=== PATIENT | male | born 1945 | race Caucasian/White ===

== ENCOUNTER 2017-03-13 09:35 | Inpatient (IN) | payer OTHER ==
[2017-03-13] MEDS: SALINE 3% 15 ML NEB TX NEB ONE ×2 (10:43→11:00)
[2017-03-13] MEDS: DUONEB 0.5 MG/3 MG NEB SCH ×3 (10:43→21:17)
[2017-03-13] MEDS ORDERED: DUONEB 0.5 MG/3 MG ONE (10:46)
[2017-03-13] MEDS ORDERED: SALINE 3% 15 ML NEB TX ONE (11:07)
[2017-03-13] MEDS ORDERED: SOLU-Medrol 125 MG VIAL IVP ONE (11:45)
[2017-03-13 12:40] LABS: BASOPHILS % (AUTO) 0.2 % (0.2-1.0); HEMATOCRIT 41.1 % (42.0-54.0); HEMOGLOBIN 13.8 g/dL (13.5-18.0); LYMPHOCYTES # (AUTO) 1.2 X10^3/uL (1.3-2.9); LYMPHOCYTES % (AUTO) 5.8 % (21.0-51.0); MEAN CORPUSCULAR HEMOGLOBIN 28.2 pg (27.0-34.0); MEAN CORPUSCULAR HGB CONC 33.6 g/dL (33.0-35.0); MEAN CORPUSCULAR VOLUME 83.8 fL (80.0-100.0); MEAN PLATELET VOLUME 8.4 fL (7.4-11.0); MONOCYTES # (AUTO) 1.6 x10^3/uL (0.3-0.8); MONOCYTES % (AUTO) 7.7 % (0.0-13.0); NEUTROPHILS # (AUTO) 17.9 x10^3/uL (2.2-4.8); NEUTROPHILS % (AUTO) 86.3 % (42.0-75.0); PLATELET COUNT 252 X10^3/uL (150.0-450.0); RED BLOOD COUNT 4.91 X10^6/uL (4.7-6.0); RED CELL DISTRIBUTION WIDTH 13.7 % (11.6-16.5); WHITE BLOOD COUNT 20.8 X10^3/uL (3.6-10.0)
[2017-03-13 12:44] LABS: BLOOD UREA NITROGEN 18 mg/dL (7-18); CARBON DIOXIDE 25.7 mmol/L (21-32); CHLORIDE 108 mmol/L (98-107); COR NA(FOR HYPERGLY) 143 mmol/L (136-145); CREATININE 1.18 mg/dL (0.70-1.30); SODIUM 142 mmol/L (136-145); eGFR BLACK RACES > 60 (>60); eGFR NON BLACK RACES > 60 (>60)
[2017-03-13] MEDS: ZITHROMAX INJ 500 MG VIAL 500 MG in NS 250 ML IV 250 ML IV SCH (13:03)
[2017-03-13] MEDS: ROCEPHIN VIAL 1 GM 1 GM in NS 50 ML IV 50 ML IV SCH (13:03)
[2017-03-13] MEDS ORDERED: NS 250 ML IV 250 ML IV ONE (13:07)
[2017-03-13] MEDS ORDERED: NS 500 ML IV 500 ML IV ONE (13:07)
[2017-03-13 13:09] LABS: ABG ALLEN TEST POS; ABG BASE EXCESS -3.1 mmol/L (-2.0-2.0); ABG HCO3 21.1 mmol/L (22-26)
--- NOTE | 2017-03-13 13:20 | RAD ---
Examination: Chest, PA and lateral views History: SOB Comparison reference: None Findings: Normal heart size, lungs clear of active disease. There is a densely calcified 1.0 cm granu alejandrina in the right middle lobe. There is no acute infiltrate, hilar enlargement or pleural effusion. Impression: No active chest disease. Calcified granuloma right lung as described. The Reported By:
[2017-03-13 13:45] VITALS: BMI 29.6
--- NOTE | 2017-03-13 16:52 | DR.H&P ---
H&P - History & Physical for Day of: H&P Date: 03/13/17 - Chief Complaint Chief Complaint: SOB - Allergies Allergies/Adverse Reactions: Allergies Allergy/AdvReac Type Severity Reaction Status Date / Time citalopram [From Celexa] Allergy Verified 03/13/17 11:31 - History of Present Illness History of Present Illness: The patient is a 72-year-old white male who presents with increasing shortness of breath. Patient was seen in the clinic setting on 03/12/17 secondary to acute COPD exacerbation. Patient was given Rocephin and Decadron IM. Patient prescribed Levaquin and prednisone. Patient is using nebulizer treatments 4 times a day and straight increased frequency to every 4 hours. The patient was given by mouth prednisone as well. Patient has been using his inhalers and oxygen at home. Does continued to have increasing dyspnea with nonproductive cough. Denies fever. Patient has failed outpatient treatment. - Past Medical History Past Medical History: Anxiety (and is to), Arthritis, COPD (O2 dependence), Dyslipidemia, GERD, Hypertension Additional Medical History: peripheral neuroopathy, bph - Past Surgical History Surgical History: Appendectomy, Cholecystectomy - Social History Does patient currently use any type of tobacco product: No Have you used tobacco products in the last 12 months: No Type of Tobacco Use: None How many years tobacco product used: 50 Does any household member use tobacco: No Alcohol Use: None Drug Use: None - Medications Home Medications: Amlodipine Besylate [Norvasc] 1 tab PO DAILY 03/13/17 [History Confirmed ] Budesonide-Formoterol [SYMBICORT INH 160-4.5 mcg (10.2 g) *] 1 inh INH DAILY [History Confirmed 03/13/17] Clonazepam 1 tab PO TID PRN 03/13/17 [History Confirmed 03/13/17] Finasteride [Proscar] 1 tab PO DAILY 03/13/17 [History Confirmed 03/13/17] Gabapentin 1 cap PO HS 03/13/17 [History Confirmed 03/13/17] Guaifenesin 1 cap PO Q4H PRN 03/13/17 [History Confirmed 03/13/17] Levofloxacin [LEVAQUIN TAB 500 MG *] 1 tab PO Q24H 03/13/17 [History Confirmed 03/13/17] Lisinopril [ZESTRIL *] 1 tab PO BID 03/13/17 [History Confirmed 03/13/17] Metoprolol Succinate Ext Rel [TOPROL XL 100 MG *] 1 tab PO HS 03/13/17 [History Confirmed 03/13/17] Misc Home Med [Patient's Home Medication] 1 tab PO DAILY 03/13/17 [History Confirmed 03/13/17] Montelukast Sodium 1 tab PO HS 03/13/17 [History Confirmed 03/13/17] Promethazine HCl/Codeine [Prometh-Codein 6.25-10 mg/5 ml] 1 teaspoon PO Q6H PRN 03/13/17 [History Confirmed 03/13/17] Roflumilast [Daliresp] 1 tab PO DAILY 03/13/17 [History Confirmed 03/13/17] Simvastatin 1 tab PO HS 03/13/17 [History Confirmed 03/13/17] Tamsulosin HCl [FLOMAX (GENERIC) 0.4 MG *] 1 cap PO HS 03/13/17 [History Confirmed 03/13/17] Tramadol HCl 1 tab PO Q6H PRN 03/13/17 [History Confirmed 03/13/17] - Review of Systems Constitutional: Weakness, Malaise Eyes: No Symptoms Reported ENT: No Symptoms Reported Respiratory: Cough, Shortness of Breath, SOB with Excertion, Wheezing Cardiovascular: No Symptoms Reported Gastrointestinal: No Symptoms Reported Genitourinary: No Symptoms Reported Musculoskeletal: No Symptoms Reported Skin: No Symptoms Reported Neurological: No Symptoms Reported - Physical Exam Vital Signs: Temperature 97.7 F Respiratory Rate 24 Blood Pressure [Right Arm] 126/62 O2 Sat by Pulse Oximetry 96 Oriented: Normal Eyes: Normal Ear: Normal Nose: Normal Throat: Normal Respiratory: Diminished Throughout, Wheezes Throughout Cardiovascular: Normal : Normal Auscultation: Bowel Sounds: Normal Palpation: Normal Tenderness: Normal Skin: Normal Musculoskeletal: Normal Psychiatric: Normal Mood Description: Anxious Affect: Normal Speech Pattern: Clear - Assessment/Plan (1) Acute bronchitis with COPD Status: Acute Plan: cxr, cbc, bmp, abg, solumedrol 125mg iv Q 8hrs, rocephin, zithromax (2) Chronic respiratory failure Narrative Support Text: O2 sat 92% Status: Acute Plan: o2 @ 2l/m nc, abg
[2017-03-13] MEDS ORDERED: PHENERGAN W/CODEINE 6.25MG/10MG PO PRN (16:53)
[2017-03-13 17:11] LABS: BILIRUBIN,URINE NEGATIVE (NEGATIVE); BLOOD/HEMOGLOBIN,URINE NEGATIVE (NEGATIVE); GLUCOSE, URINE NEGATIVE (NEGATIVE); KETONES,URINE NEGATIVE (NEGATIVE); LEUKOCYTE ESTERASE ,URINE NEGATIVE (NEGATIVE); NITRITES,URINE POSITIVE (NEGATIVE); PROTEIN,URINE 1+ (NEGATIVE); UROBILINOGEN,URINE NORMAL (NORMAL)
[2017-03-13 18:09] LABS: APPEARANCE,URINE CLEAR (CLEAR); COLOR,URINE YELLOW (YELLOW)
[2017-03-13 18:15] LABS: AMORPHOUS SEDIMENT,UR TRACE /HPF (NEGATIVE); BACTERIA,URINE NEGATIVE /HPF (NEGATIVE); RBC,URINE NONE SEEN /HPF (NEGATIVE); SQUAMOUS EPITHELIAL CELL,UR RARE /HPF (NEGATIVE)
[2017-03-13] MEDS: LEVAQUIN TAB 500 MG PO SCH (19:52)
[2017-03-13] MEDS ORDERED: TOPROL XL PO ONE (20:48)
[2017-03-13] MEDS ORDERED: ZESTRIL TAB 20 MG ONE (20:48)
[2017-03-13] MEDS: PULMICORT NEB TX 0.5 MG NEB SCH (21:17)
[2017-03-13] MEDS: FLOMAX PO SCH (21:50)
[2017-03-13] MEDS: NEURONTIN CAP 400 MG PO SCH (21:50)
[2017-03-13] MEDS: KLONOPIN TAB 1 MG PO PRN (21:51)
[2017-03-13] MEDS: ZOCOR TAB 10 MG PO SCH (21:51)
[2017-03-13] MEDS: ZESTRIL TAB 20 MG PO SCH (21:51)
[2017-03-13] MEDS: SINGULAIR TAB 10 MG PO SCH (21:51)
[2017-03-13] MEDS: TOPROL XL PO SCH (21:51)
[2017-03-14] MEDS: DUONEB 0.5 MG/3 MG NEB SCH ×6 (01:16→21:17)
[2017-03-14 06:09] LABS: BASOPHILS % (AUTO) 0.1 % (0.2-1.0); HEMATOCRIT 36.6 % (42.0-54.0); HEMOGLOBIN 12.4 g/dL (13.5-18.0); LYMPHOCYTES # (AUTO) 0.9 X10^3/uL (1.3-2.9); LYMPHOCYTES % (AUTO) 5.9 % (21.0-51.0); MEAN CORPUSCULAR HEMOGLOBIN 28.2 pg (27.0-34.0); MEAN CORPUSCULAR VOLUME 83.1 fL (80.0-100.0); MEAN PLATELET VOLUME 8.6 fL (7.4-11.0); MONOCYTES # (AUTO) 0.6 x10^3/uL (0.3-0.8); MONOCYTES % (AUTO) 3.7 % (0.0-13.0); NEUTROPHILS # (AUTO) 13.3 x10^3/uL (2.2-4.8); NEUTROPHILS % (AUTO) 90.3 % (42.0-75.0); PLATELET COUNT 214 X10^3/uL (150.0-450.0); RED BLOOD COUNT 4.41 X10^6/uL (4.7-6.0); RED CELL DISTRIBUTION WIDTH 13.7 % (11.6-16.5); WHITE BLOOD COUNT 14.7 X10^3/uL (3.6-10.0)
[2017-03-14 06:11] LABS: ALANINE AMINOTRANSFERASE 30 Units/L (12-78); ALBUMIN 3.2 g/dL (3.4-5.0); ALKALINE PHOSPHATASE 87 Units/L (46-116); ASPARTATE AMINO TRANSFERASE 20 Units/L (15-37); BLOOD UREA NITROGEN 18 mg/dL (7-18); CALCIUM 8.3 mg/dL (8.5-10.1); CARBON DIOXIDE 21.7 mmol/L (21-32); CHLORIDE 109 mmol/L (98-107); COR CA(FOR HYPOALB) 8.9 mg/dL (8.5-10.1); COR NA(FOR HYPERGLY) 142 mmol/L (136-145); CREATININE 1.04 mg/dL (0.70-1.30); SODIUM 141 mmol/L (136-145); TOTAL PROTEIN 6.1 g/dL (6.4-8.2); eGFR BLACK RACES > 60 (>60); eGFR NON BLACK RACES > 60 (>60)
[2017-03-14 07:00] LABS: PLATELET MORPHOLOGY COMMENT NORMAL (NORMAL)
[2017-03-14] MEDS ORDERED: ZESTRIL TAB 20 MG ONE ×2 (08:53→19:32)
[2017-03-14] MEDS ORDERED: LEVAQUIN PREMIX IV 500 MG 500 MG/100 ML BAG IV SCH (09:00)
[2017-03-14] MEDS: ULTRAM PO PRN ×2 (09:04→20:34)
[2017-03-14] MEDS: ZESTRIL TAB 20 MG PO SCH ×2 (09:05→20:35)
[2017-03-14] MEDS: KLONOPIN TAB 1 MG PO PRN ×2 (09:05→20:35)
[2017-03-14] MEDS: NORVASC TAB 10 MG PO SCH (09:05)
[2017-03-14] MEDS: PROSCAR PO SCH (09:06)
[2017-03-14] MEDS: ZITHROMAX INJ 500 MG VIAL 500 MG in NS 250 ML IV 250 ML IV SCH (09:06)
[2017-03-14] MEDS: DALIRESP PO SCH (09:06)
[2017-03-14] MEDS: ROCEPHIN VIAL 1 GM 1 GM in NS 50 ML IV 50 ML IV SCH (09:06)
[2017-03-14] MEDS: ROBITUSSIN (PLAIN) PO PRN ×2 (09:18→20:41)
[2017-03-14] MEDS: PULMICORT NEB TX 0.5 MG NEB SCH ×2 (09:32→21:17)
[2017-03-14] MEDS: LEVAQUIN TAB 500 MG PO SCH (17:20)
[2017-03-14] MEDS ORDERED: TOPROL XL PO ONE (19:31)
[2017-03-14] MEDS: NEURONTIN CAP 400 MG PO SCH (20:34)
[2017-03-14] MEDS: FLOMAX PO SCH (20:34)
[2017-03-14] MEDS: SINGULAIR TAB 10 MG PO SCH (20:34)
[2017-03-14] MEDS: ZOCOR TAB 10 MG PO SCH (20:35)
[2017-03-14] MEDS: TOPROL XL PO SCH (20:41)
[2017-03-15] MEDS: DUONEB 0.5 MG/3 MG NEB SCH ×6 (01:08→22:16)
[2017-03-15 06:05] LABS: BASOPHILS % (AUTO) 0.4 % (0.2-1.0); EOSINOPHILS # (AUTO) 0.2 x10^3/uL (0.0-0.2); EOSINOPHILS % (AUTO) 1.5 % (0.9-2.9); HEMATOCRIT 36.4 % (42.0-54.0); HEMOGLOBIN 12.4 g/dL (13.5-18.0); LYMPHOCYTES # (AUTO) 2.1 X10^3/uL (1.3-2.9); LYMPHOCYTES % (AUTO) 17.2 % (21.0-51.0); MEAN CORPUSCULAR HEMOGLOBIN 28.5 pg (27.0-34.0); MEAN CORPUSCULAR VOLUME 83.6 fL (80.0-100.0); MEAN PLATELET VOLUME 8.3 fL (7.4-11.0); MONOCYTES # (AUTO) 1.4 x10^3/uL (0.3-0.8); MONOCYTES % (AUTO) 11.7 % (0.0-13.0); NEUTROPHILS # (AUTO) 8.5 x10^3/uL (2.2-4.8); NEUTROPHILS % (AUTO) 69.2 % (42.0-75.0); PLATELET COUNT 201 X10^3/uL (150.0-450.0); RED BLOOD COUNT 4.36 X10^6/uL (4.7-6.0); RED CELL DISTRIBUTION WIDTH 13.9 % (11.6-16.5); WHITE BLOOD COUNT 12.2 X10^3/uL (3.6-10.0)
[2017-03-15 06:24] LABS: ALANINE AMINOTRANSFERASE 52 Units/L (12-78); ALKALINE PHOSPHATASE 84 Units/L (46-116); ASPARTATE AMINO TRANSFERASE 39 Units/L (15-37); BLOOD UREA NITROGEN 19 mg/dL (7-18); CALCIUM 8.1 mg/dL (8.5-10.1); CARBON DIOXIDE 24.8 mmol/L (21-32); CHLORIDE 109 mmol/L (98-107); COR CA(FOR HYPOALB) 8.9 mg/dL (8.5-10.1); CREATININE 0.95 mg/dL (0.70-1.30); SODIUM 143 mmol/L (136-145); TOTAL PROTEIN 5.7 g/dL (6.4-8.2); eGFR BLACK RACES > 60 (>60); eGFR NON BLACK RACES > 60 (>60)
--- NOTE | 2017-03-15 07:56 | RAD ---
Examination: Portable AP chest History: COPD Comparison reference 03/13/2017 Findings: Continued normal heart size with essentially clear lungs. Widened upper mediastinum is attr ibuted to combination of nonstandard projection and brachiocephalic vessel dilatation. Impression: No acute abnormality demonstrated. Reported By:
[2017-03-15] MEDS: PULMICORT NEB TX 0.5 MG NEB SCH ×2 (08:45→22:16)
[2017-03-15] MEDS ORDERED: ZESTRIL TAB 20 MG ONE ×2 (09:08→19:41)
[2017-03-15] MEDS: KLONOPIN TAB 1 MG PO PRN ×2 (09:28→20:48)
[2017-03-15] MEDS: ZESTRIL TAB 20 MG PO SCH ×2 (09:28→20:48)
[2017-03-15] MEDS: PROSCAR PO SCH (09:29)
[2017-03-15] MEDS: NORVASC TAB 10 MG PO SCH (09:29)
[2017-03-15] MEDS: ROBITUSSIN (PLAIN) PO PRN ×2 (09:29→20:47)
[2017-03-15] MEDS: ROCEPHIN VIAL 1 GM 1 GM in NS 100 ML IV + SPIKE MINIBAG* 100 ML IV SCH (09:29)
[2017-03-15] MEDS: DALIRESP PO SCH (09:29)
[2017-03-15] MEDS: ZITHROMAX INJ 500 MG VIAL 500 MG in NS 250 ML IV 250 ML IV SCH (09:30)
[2017-03-15] MEDS ORDERED: MUCOMYST 20% 200 MG/ML NEB SCH (13:45)
[2017-03-15] MEDS: LEVAQUIN TAB 500 MG PO SCH (17:59)
[2017-03-15] MEDS ORDERED: TOPROL XL PO ONE (19:41)
[2017-03-15] MEDS: NEURONTIN CAP 400 MG PO SCH (20:47)
[2017-03-15] MEDS: TOPROL XL PO SCH (20:47)
[2017-03-15] MEDS: ZOCOR TAB 10 MG PO SCH (20:47)
[2017-03-15] MEDS: ULTRAM PO PRN (20:48)
[2017-03-15] MEDS: SINGULAIR TAB 10 MG PO SCH (20:48)
[2017-03-15] MEDS: FLOMAX PO SCH (20:48)
[2017-03-15] MEDS: MUCOMYST 20% 200 MG/ML NEB SCH (22:16)
[2017-03-16] MEDS: DUONEB 0.5 MG/3 MG NEB SCH ×6 (02:17→22:00)
[2017-03-16 06:24] LABS: BASOPHILS % (AUTO) 0.5 % (0.2-1.0); EOSINOPHILS # (AUTO) 0.8 x10^3/uL (0.0-0.2); EOSINOPHILS % (AUTO) 9.3 % (0.9-2.9); HEMATOCRIT 37.2 % (42.0-54.0); HEMOGLOBIN 12.7 g/dL (13.5-18.0); LYMPHOCYTES # (AUTO) 1.7 X10^3/uL (1.3-2.9); LYMPHOCYTES % (AUTO) 18.8 % (21.0-51.0); MEAN CORPUSCULAR HEMOGLOBIN 28.6 pg (27.0-34.0); MEAN CORPUSCULAR HGB CONC 34.1 g/dL (33.0-35.0); MEAN CORPUSCULAR VOLUME 83.9 fL (80.0-100.0); MEAN PLATELET VOLUME 8.5 fL (7.4-11.0); MONOCYTES # (AUTO) 1.1 x10^3/uL (0.3-0.8); NEUTROPHILS # (AUTO) 5.4 x10^3/uL (2.2-4.8); NEUTROPHILS % (AUTO) 59.4 % (42.0-75.0); PLATELET COUNT 192 X10^3/uL (150.0-450.0); RED BLOOD COUNT 4.43 X10^6/uL (4.7-6.0); RED CELL DISTRIBUTION WIDTH 13.7 % (11.6-16.5); WHITE BLOOD COUNT 9.1 X10^3/uL (3.6-10.0)
[2017-03-16 06:50] LABS: ALANINE AMINOTRANSFERASE 60 Units/L (12-78); ALKALINE PHOSPHATASE 87 Units/L (46-116); ASPARTATE AMINO TRANSFERASE 39 Units/L (15-37); BLOOD UREA NITROGEN 18 mg/dL (7-18); CALCIUM 8.2 mg/dL (8.5-10.1); CARBON DIOXIDE 26.2 mmol/L (21-32); CHLORIDE 109 mmol/L (98-107); CREATININE 0.97 mg/dL (0.70-1.30); SODIUM 144 mmol/L (136-145); TOTAL PROTEIN 5.8 g/dL (6.4-8.2); eGFR BLACK RACES > 60 (>60); eGFR NON BLACK RACES > 60 (>60)
[2017-03-16] MEDS ORDERED: ZESTRIL TAB 20 MG ONE ×2 (08:21→20:16)
[2017-03-16] MEDS: ROCEPHIN VIAL 1 GM 1 GM in NS 100 ML IV + SPIKE MINIBAG* 100 ML IV SCH (09:12)
[2017-03-16] MEDS: KLONOPIN TAB 1 MG PO PRN ×2 (09:13→20:22)
[2017-03-16] MEDS: ROBITUSSIN (PLAIN) PO PRN ×3 (09:13→21:53)
[2017-03-16] MEDS: DALIRESP PO SCH (09:13)
[2017-03-16] MEDS: PROSCAR PO SCH (09:13)
[2017-03-16] MEDS: ZITHROMAX INJ 500 MG VIAL 500 MG in NS 250 ML IV 250 ML IV SCH (09:13)
[2017-03-16] MEDS: ZESTRIL TAB 20 MG PO SCH ×2 (09:13→20:24)
[2017-03-16] MEDS: NORVASC TAB 10 MG PO SCH (09:13)
[2017-03-16] MEDS: PULMICORT NEB TX 0.5 MG NEB SCH ×2 (09:17→22:00)
[2017-03-16] MEDS: MUCOMYST 20% 200 MG/ML NEB SCH ×2 (09:17→22:01)
[2017-03-16] MEDS ORDERED: NS 500 ML IV 500 ML IV ONE (10:39)
[2017-03-16] MEDS: LEVAQUIN TAB 500 MG PO SCH (17:01)
[2017-03-16] MEDS ORDERED: TOPROL XL PO ONE (20:16)
[2017-03-16] MEDS: SINGULAIR TAB 10 MG PO SCH (20:21)
[2017-03-16] MEDS: ZOCOR TAB 10 MG PO SCH (20:21)
[2017-03-16] MEDS: TOPROL XL PO SCH (20:22)
[2017-03-16] MEDS: FLOMAX PO SCH (20:23)
[2017-03-16] MEDS: ULTRAM PO PRN (20:23)
[2017-03-16] MEDS: NEURONTIN CAP 400 MG PO SCH (20:24)
[2017-03-17] MEDS: DUONEB 0.5 MG/3 MG NEB SCH ×4 (01:07→12:15)
[2017-03-17] MEDS ORDERED: ZESTRIL TAB 20 MG ONE (07:53)
[2017-03-17 08:08] LABS: BASOPHILS # (AUTO) 0.1 X10^3/uL (0.0-0.1); BASOPHILS % (AUTO) 0.5 % (0.2-1.0); EOSINOPHILS # (AUTO) 0.9 x10^3/uL (0.0-0.2); EOSINOPHILS % (AUTO) 7.7 % (0.9-2.9); HEMATOCRIT 41.4 % (42.0-54.0); HEMOGLOBIN 13.9 g/dL (13.5-18.0); LYMPHOCYTES # (AUTO) 1.5 X10^3/uL (1.3-2.9); LYMPHOCYTES % (AUTO) 12.9 % (21.0-51.0); MEAN CORPUSCULAR HEMOGLOBIN 28.1 pg (27.0-34.0); MEAN CORPUSCULAR HGB CONC 33.5 g/dL (33.0-35.0); MEAN CORPUSCULAR VOLUME 84.1 fL (80.0-100.0); MEAN PLATELET VOLUME 7.8 fL (7.4-11.0); MONOCYTES # (AUTO) 1.3 x10^3/uL (0.3-0.8); MONOCYTES % (AUTO) 10.7 % (0.0-13.0); NEUTROPHILS # (AUTO) 8.1 x10^3/uL (2.2-4.8); NEUTROPHILS % (AUTO) 68.2 % (42.0-75.0); PLATELET COUNT 237 X10^3/uL (150.0-450.0); RED BLOOD COUNT 4.93 X10^6/uL (4.7-6.0); RED CELL DISTRIBUTION WIDTH 13.9 % (11.6-16.5); WHITE BLOOD COUNT 11.8 X10^3/uL (3.6-10.0)
[2017-03-17] MEDS: DALIRESP PO SCH (08:19)
[2017-03-17] MEDS: ROBITUSSIN (PLAIN) PO PRN (08:19)
[2017-03-17] MEDS: PROSCAR PO SCH (08:19)
[2017-03-17] MEDS: ZESTRIL TAB 20 MG PO SCH (08:19)
[2017-03-17] MEDS: NORVASC TAB 10 MG PO SCH (08:19)
[2017-03-17 08:23] LABS: ALANINE AMINOTRANSFERASE 59 Units/L (12-78); ALBUMIN 3.4 g/dL (3.4-5.0); ALKALINE PHOSPHATASE 104 Units/L (46-116); ASPARTATE AMINO TRANSFERASE 34 Units/L (15-37); BLOOD UREA NITROGEN 14 mg/dL (7-18); CALCIUM 8.9 mg/dL (8.5-10.1); CARBON DIOXIDE 28.2 mmol/L (21-32); CHLORIDE 107 mmol/L (98-107); COR NA(FOR HYPERGLY) 142 mmol/L (136-145); CREATININE 1.03 mg/dL (0.70-1.30); SODIUM 142 mmol/L (136-145); TOTAL PROTEIN 6.5 g/dL (6.4-8.2); eGFR BLACK RACES > 60 (>60); eGFR NON BLACK RACES > 60 (>60)
[2017-03-17] MEDS: MUCOMYST 20% 200 MG/ML NEB SCH (09:30)
[2017-03-17] MEDS: PULMICORT NEB TX 0.5 MG NEB SCH (09:30)
[2017-03-17] MEDS: ROCEPHIN VIAL 1 GM 1 GM in NS 100 ML IV + SPIKE MINIBAG* 100 ML IV SCH (10:29)
[2017-03-17] MEDS: ZITHROMAX INJ 500 MG VIAL 500 MG in NS 250 ML IV 250 ML IV SCH (10:29)
[2017-03-17 12:54] VITALS: BP 108/59
== END 2017-03-17 13:45 | disposition home or self-care (01) | DRG 191 ==
LOC: MED/SURG 09:35
PROVIDERS: ADMIT Internal Medicine; ATTEND Internal Medicine
DX: J44.1 Chronic obstructive pulmonary disease with (acute) exacerbation (principal); J20.9 Acute bronchitis, unspecified; J44.0 Chronic obstructive pulmonary disease with (acute) lower respiratory infection; R06.02 Shortness of breath; Z99.81 Dependence on supplemental oxygen; E78.2 Mixed hyperlipidemia; K21.9 Gastro-esophageal reflux disease without esophagitis; I10 Essential (primary) hypertension; J96.10 Chronic respiratory failure, unspecified whether with hypoxia or hypercapnia
CPT/HCPCS: 36415; 36600; 71010; 71020; 80048; 80053; 81001; 82803; 85025; 87040; 87086; 93005; 93010; 94640; 94669; 94760; 99231; A4222; S0138; J0456; J0696; J2930; J7608; J7620; J7626

== ENCOUNTER 2024-04-08 13:49 | Observation (INO) ==
--- NOTE | 2024-04-08 15:30 | DR.H&P ---
H&P History & Physical for Day of: H&P Date: 04/08/24 Chief Complaint Chief Complaint: SOB History of Present Illness History of Present Illness: Patient is a 79 year old white male who presents today with shortness of breath. Patient states he is unable to walk short distances or take a shower without giving out of breath. Patient has a history of asthma, COPD, HTN, type 2 diabetes, HLD, and GERD. Patient denies any nausea, vomiting, SINGH, chest pain or dizziness. States he is just unable to get the air he needs to breath. Patient's states he has been out in the weather more trying to prepare for the snow this week. States for the past two days his breathing has got worse. Patient states he has a bad cough but is not coughing anything up. Patient states he did have a heart catherization a few weeks ago and everything was good. Will admit patient for further evaluation and treatment. Past Medical History Past Medical History: Anxiety (and is to), Arthritis, COPD (O2 dependence), Dyslipidemia, GERD and Hypertension Additional Medical History: peripheral neuroopathy, bph Past Surgical History Surgical History: Appendectomy and Cholecystectomy Medications Home Medications: Home Medications Medication Instructions Recorded Confirmed Type Gabapentin 1 cap PO HS 03/13/17 03/13/17 History Misc Home Med [Patient's Home 1 tab PO DAILY 03/13/17 03/13/17 History Medication] amlodipine 10 mg tablet (Norvasc) 1 tab PO DAILY 03/13/17 03/13/17 History budesonide-formoterol HFA 160 1 inh INH DAILY 03/13/17 03/13/17 History mcg-4.5 mcg/actuation aerosol inhaler (Symbicort) clonazepam 1 mg tablet 1 tab PO TID PRN Anxiety 03/13/17 03/13/17 History finasteride 5 mg tablet (Proscar) 1 tab PO DAILY 03/13/17 03/13/17 History guaifenesin 400 mg tablet 1 cap PO Q4H PRN Congestion 03/13/17 03/13/17 History levofloxacin 500 mg tablet 1 tab PO Q24H 03/13/17 03/13/17 History lisinopril 20 mg tablet 1 tab PO BID 03/13/17 03/13/17 History metoprolol succinate 100 mg 1 tab PO HS 03/13/17 03/13/17 History tablet,extended release 24 hr montelukast 10 mg tablet 1 tab PO HS 03/13/17 03/13/17 History promethazine 6.25 mg-codeine 10 1 teaspoon PO Q6H PRN 03/13/17 03/13/17 History mg/5 mL syrup roflumilast 500 mcg tablet 1 tab PO DAILY 03/13/17 03/13/17 History (Daliresp) simvastatin 10 mg tablet 1 tab PO HS 03/13/17 03/13/17 History tamsulosin 0.4 mg capsule 1 cap PO HS 03/13/17 03/13/17 History tramadol 50 mg tablet 1 tab PO Q6H PRN Pain 03/13/17 03/13/17 History Allergies Allergies Allergy/AdvReac Type Severity Reaction Status Date / Time citalopram [From Celexa] Allergy Verified 03/13/17 11:31 Review of Systems Constitutional: No Symptoms Reported Eyes: No Symptoms Reported ENT: No Symptoms Reported Respiratory: See HPI, Cough and Shortness of Breath Cardiovascular: No Symptoms Reported Gastrointestinal: No Symptoms Reported Genitourinary: No Symptoms Reported Musculoskeletal: Back Pain and Neck Pain Skin: No Symptoms Reported Neurological: No Symptoms Reported Oriented: Normal Eyes: Normal Ear: Normal Nose: Normal Throat: Normal Respiratory: RLL Diminished and LLL Diminished Cardiovascular: Normal : Normal Auscultation: Bowel Sounds: Normal Palpation: Normal Tenderness: Normal Skin: Normal Musculoskeletal: Back:Lumbar Psychiatric: Normal Mood Description: Calm Affect: Normal Speech Pattern: Clear Assessment/Plan (1) Acute bronchitis with COPD: Narrative Support Text: Chest X-ray steroids breathing treatment monitor Status: Acute (2) Chronic respiratory failure: Narrative Support Text: breathing treatments steroids oxygen nasal cannula monitor Status: Acute (3) Type 2 diabetes mellitus: Narrative Support Text: blood sugar check 1800 calorie diet monitor Status: Acute (4) HTN (hypertension): Narrative Support Text: monitor vitals Status: Acute (5) Asthma: Narrative Support Text: breathing treatments monitor Status: Acute Review H&P Reviewed: Yes Patient was examined?: Yes
[2024-04-08] MEDS: XOPENEX 1.25 MG/3 ML NEBULE NEB SCH ×2 (15:32→18:40)
[2024-04-08] MEDS: PULMICORT NEB TX 0.5 MG NEB SCH (15:32)
--- NOTE | 2024-04-08 15:55 | RAD ---
EXAM:Chest PA and lateral viewsHISTORY:COPDCOMPARISON:CT chest 04/09/2022FINDINGS:Heart size normal with no evidence for pneumonia, CHF, pneumothorax or pleural fluid. Mild symmetric pulmonary hyperinflation. Densely calcified 1 cm granuloma right lung.IMPRESSION:No acute chest abnormality identified.THIS IS AN ELECTRONICALLY VERIFIED FINAL REPORT04/08/2024 3:51 PM - Electronically signed by Jacob Cole MD
[2024-04-08] MEDS: SOLU-Medrol 125 MG VIAL IVP SCH (16:14)
[2024-04-08] MEDS: NS 1,000 ML IV 1,000 ML IV SCH (16:22)
[2024-04-08 16:28] LABS: ABG BASE EXCESS 0.5 mmol/L (-2.0-2.0); ABG HCO3 24.6 mmol/L (22-26)
--- NOTE | 2024-04-08 16:45 | EKG ---
Test Reason : COPD Blood Pressure : */* mmHG Vent. Rate : 60 BPM Atrial Rate : 60 BPM P-R Int : 252 ms QRS Dur : 100 ms QT Int : 400 ms P-R-T Axes : 57 51 59 degrees QTc Int : 400 ms Sinus rhythm with 1st degree AV block Otherwise normal ECG No previous ECGs available Confirmed by Jd Colin MD ([id number]) on 04/09/2024 6:43:28 AM Referred By: Confirmed By: Jd Colin MD
[2024-04-08] MEDS ORDERED: XOPENEX 1.25 MG/3 ML NEBULE NEB PRN (16:55)
[2024-04-08 16:56] LABS: BASOPHILS # (AUTO) 0.1 X10^3/uL (0.0-0.1); BASOPHILS % (AUTO) 0.9 % (0.2-1.0); HEMATOCRIT 41.6 % (42.0-54.0); HEMOGLOBIN 13.8 g/dL (13.5-18.0); LYMPHOCYTES # (AUTO) 1.3 X10^3/uL (1.3-2.9); MEAN CORPUSCULAR HEMOGLOBIN 26.2 pg (27.0-34.0); MEAN CORPUSCULAR HGB CONC 33.2 g/dL (33.0-35.0); MEAN CORPUSCULAR VOLUME 79.1 fL (80.0-100.0); MEAN PLATELET VOLUME 7.7 fL (7.4-11.0); MONOCYTES # (AUTO) 0.7 x10^3/uL (0.3-0.8); MONOCYTES % (AUTO) 10.7 % (0.0-13.0); NEUTROPHILS # (AUTO) 4.4 x10^3/uL (2.2-4.8); NEUTROPHILS % (AUTO) 68.4 % (42.0-75.0); PLATELET COUNT 256 X10^3/uL (150.0-450.0); RED BLOOD COUNT 5.25 X10^6/uL (4.7-6.0); RED CELL DISTRIBUTION WIDTH 14.9 % (11.6-16.5); WHITE BLOOD COUNT 6.5 X10^3/uL (3.6-10.0)
[2024-04-08] MEDS ORDERED: NS 1,000 ML IV 1,000 ML IV SCH (17:00)
[2024-04-08 17:09] LABS: ALANINE AMINOTRANSFERASE 27 Units/L (12-78); ALBUMIN 3.8 g/dL (3.4-5.0); ALKALINE PHOSPHATASE 102 Units/L (46-116); ASPARTATE AMINO TRANSFERASE 31 Units/L (15-37); BLOOD UREA NITROGEN 12 mg/dL (7-18); CALCIUM 9.1 mg/dL (8.5-10.1); CARBON DIOXIDE 27.3 mmol/L (21-32); CHLORIDE 102 mmol/L (98-107); COR NA(FOR HYPERGLY) 140 mmol/L (136-145); CREATININE 1.21 mg/dL (0.70-1.30); GLUCOSE 135 mg/dL (65-99); POTASSIUM 4.1 mmol/L (3.5-5.1); SODIUM 139 mmol/L (136-145); TOTAL PROTEIN 7.4 g/dL (6.4-8.2); eGFR NON BLACK RACES > 60 (>60)
[2024-04-08 18:27] VITALS: BMI 29.2
[2024-04-08 19:34] LABS: BILIRUBIN,URINE NEGATIVE (NEGATIVE); BLOOD/HEMOGLOBIN,URINE NEGATIVE (NEGATIVE); GLUCOSE, URINE 1+ (NEGATIVE); KETONES,URINE NEGATIVE (NEGATIVE); LEUKOCYTE ESTERASE ,URINE NEGATIVE (NEGATIVE); NITRITES,URINE NEGATIVE (NEGATIVE); PROTEIN,URINE 1+ (NEGATIVE); UROBILINOGEN,URINE NORMAL (NORMAL)
[2024-04-08 19:46] LABS: APPEARANCE,URINE CLEAR (CLEAR); BACTERIA,URINE TRACE /HPF (NEGATIVE); COLOR,URINE YELLOW (YELLOW); RBC,URINE 0-2 /HPF (0-3); SQUAMOUS EPITHELIAL CELL,UR FEW /HPF (NEGATIVE)
--- NOTE | 2024-04-08 20:08 | EKG ---
Test Reason : COPD Blood Pressure : */* mmHG Vent. Rate : 85 BPM Atrial Rate : 85 BPM P-R Int : 280 ms QRS Dur : 104 ms QT Int : 366 ms P-R-T Axes : 64 24 25 degrees QTc Int : 435 ms Sinus rhythm with 1st degree AV block Otherwise normal ECG When compared with ECG of 08-APR-2024 16:28, (Unconfirmed) Nonspecific T wave abnormality now evident in Inferior leads Confirmed by Jd Colin MD ([id number]) on 04/09/2024 6:43:21 AM Referred By: Confirmed By: Jd Colin MD
[2024-04-08] MEDS ORDERED: ZESTRIL TAB 20 MG ONE (20:46)
[2024-04-08] MEDS ORDERED: TOPROL XL PO ONE (20:47)
[2024-04-08] MEDS: TOPROL XL PO SCH (20:51)
[2024-04-08] MEDS: FLOMAX PO SCH (20:51)
[2024-04-08] MEDS: SINGULAIR TAB 10 MG PO SCH (20:52)
[2024-04-08] MEDS: TRICOR TAB 160 MG PO SCH (20:52)
[2024-04-08] MEDS: KLONOPIN TAB 1 MG PO PRN (20:52)
[2024-04-08] MEDS: ZOCOR TAB 10 MG PO SCH (20:52)
[2024-04-08] MEDS: NEURONTIN CAP 400 MG PO SCH (20:53)
[2024-04-08] MEDS: ZESTRIL TAB 20 MG PO SCH (20:55)
[2024-04-08] MEDS: NovoLIN R (or HumuLIN R) SUBCUT PRN (20:58)
[2024-04-09] MEDS: GLUCOPHAGE PO SCH (06:03)
[2024-04-09] MEDS: GLUCOPHAGE ONE (06:12)
[2024-04-09 07:23] LABS: BASOPHILS % (AUTO) 0.1 % (0.2-1.0); HEMATOCRIT 40.5 % (42.0-54.0); HEMOGLOBIN 13.5 g/dL (13.5-18.0); LYMPHOCYTES # (AUTO) 0.7 X10^3/uL (1.3-2.9); LYMPHOCYTES % (AUTO) 10.7 % (21.0-51.0); MEAN CORPUSCULAR HEMOGLOBIN 26.3 pg (27.0-34.0); MEAN CORPUSCULAR HGB CONC 33.3 g/dL (33.0-35.0); MEAN CORPUSCULAR VOLUME 78.9 fL (80.0-100.0); MEAN PLATELET VOLUME 7.7 fL (7.4-11.0); MONOCYTES # (AUTO) 0.1 x10^3/uL (0.3-0.8); NEUTROPHILS # (AUTO) 5.4 x10^3/uL (2.2-4.8); NEUTROPHILS % (AUTO) 88.2 % (42.0-75.0); PLATELET COUNT 226 X10^3/uL (150.0-450.0); RED BLOOD COUNT 5.14 X10^6/uL (4.7-6.0); RED CELL DISTRIBUTION WIDTH 15.1 % (11.6-16.5); WHITE BLOOD COUNT 6.1 X10^3/uL (3.6-10.0)
[2024-04-09 07:41] LABS: ALANINE AMINOTRANSFERASE 23 Units/L (12-78); ALBUMIN 3.3 g/dL (3.4-5.0); ALKALINE PHOSPHATASE 89 Units/L (46-116); ASPARTATE AMINO TRANSFERASE 21 Units/L (15-37); BLOOD UREA NITROGEN 12 mg/dL (7-18); CARBON DIOXIDE 24.9 mmol/L (21-32); CHLORIDE 102 mmol/L (98-107); COR CA(FOR HYPOALB) 9.6 mg/dL (8.5-10.1); COR NA(FOR HYPERGLY) 139 mmol/L (136-145); CREATININE 1.04 mg/dL (0.70-1.30); GLUCOSE 188 mg/dL (65-99); POTASSIUM 4.7 mmol/L (3.5-5.1); SODIUM 137 mmol/L (136-145); TOTAL PROTEIN 6.8 g/dL (6.4-8.2); eGFR NON BLACK RACES > 60 (>60)
[2024-04-09] MEDS ORDERED: ZESTRIL TAB 20 MG ONE (09:10)
[2024-04-09] MEDS: ULTRAM PO PRN (09:14)
[2024-04-09] MEDS: NORVASC TAB 10 MG PO SCH (09:15)
[2024-04-09] MEDS: DALIRESP PO SCH (09:16)
[2024-04-09] MEDS: FLONASE NASAL SPRAY ENOSTRIL SCH (09:18)
[2024-04-09] MEDS: ROCEPHIN VIAL 1 GRAM 1 G in NS 100 ML IV 100 ML IV SCH (10:57)
[2024-04-09] MEDS: NS 1,000 ML IV 1,000 ML IV SCH (17:31)
[2024-04-09] MEDS: TOPROL XL PO ONE (20:15)
[2024-04-09] MEDS: SNACK - Diabetic Appropriate PO SCH (20:21)
[2024-04-09] MEDS: ZESTRIL TAB 20 MG ONE (20:22)
[2024-04-10] MEDS: TYLENOL 325 MG TAB PO PRN (04:46)
[2024-04-10] MEDS ORDERED: GLUCOPHAGE ONE (04:50)
[2024-04-10 07:41] LABS: BASOPHILS % (AUTO) 0.1 % (0.2-1.0); HEMATOCRIT 39.5 % (42.0-54.0); HEMOGLOBIN 12.9 g/dL (13.5-18.0); LYMPHOCYTES # (AUTO) 0.9 X10^3/uL (1.3-2.9); LYMPHOCYTES % (AUTO) 7.2 % (21.0-51.0); MEAN CORPUSCULAR HEMOGLOBIN 25.8 pg (27.0-34.0); MEAN CORPUSCULAR HGB CONC 32.6 g/dL (33.0-35.0); MEAN PLATELET VOLUME 7.9 fL (7.4-11.0); MONOCYTES # (AUTO) 0.6 x10^3/uL (0.3-0.8); MONOCYTES % (AUTO) 5.3 % (0.0-13.0); NEUTROPHILS # (AUTO) 10.6 x10^3/uL (2.2-4.8); NEUTROPHILS % (AUTO) 87.4 % (42.0-75.0); PLATELET COUNT 245 X10^3/uL (150.0-450.0); RED CELL DISTRIBUTION WIDTH 15.1 % (11.6-16.5); WHITE BLOOD COUNT 12.1 X10^3/uL (3.6-10.0)
[2024-04-10 07:52] LABS: ALANINE AMINOTRANSFERASE 24 Units/L (12-78); ALBUMIN 3.6 g/dL (3.4-5.0); ALKALINE PHOSPHATASE 86 Units/L (46-116); ASPARTATE AMINO TRANSFERASE 19 Units/L (15-37); BLOOD UREA NITROGEN 19 mg/dL (7-18); CALCIUM 8.4 mg/dL (8.5-10.1); CARBON DIOXIDE 25.7 mmol/L (21-32); CHLORIDE 106 mmol/L (98-107); COR NA(FOR HYPERGLY) 144 mmol/L (136-145); CREATININE 1.22 mg/dL (0.70-1.30); GLUCOSE 170 mg/dL (65-99); POTASSIUM 4.2 mmol/L (3.5-5.1); SODIUM 142 mmol/L (136-145); TOTAL PROTEIN 6.9 g/dL (6.4-8.2); eGFR NON BLACK RACES > 60 (>60)
[2024-04-10] MEDS: ZESTRIL TAB 20 MG ONE ×2 (08:28→20:20)
[2024-04-10] MEDS ORDERED: SOLU-Medrol 125 MG VIAL IVP SCH (14:00)
[2024-04-10] MEDS: SOLU-Medrol 40 MG VIAL IVP SCH (14:10)
[2024-04-10] MEDS ORDERED: TOPROL XL PO ONE (20:12)
[2024-04-11] MEDS ORDERED: GLUCOPHAGE ONE (04:22)
--- NOTE | 2024-04-11 05:59 | RAD ---
EXAM: CHEST, PA/LAT ADULT HISTORY: COPD; COMPARISON: 04/08/2024 FINDINGS: The cardiomediastinal silhouette is stable. Chronic appearing interstitial changes in the lungs. No acute airspace disease. No pneumothorax or ef fusion. No acute osseous abnormality. IMPRESSION: No acute cardiopulmonary disease. THIS IS AN ELECTRONICALLY VERIFIED FINAL REPORT 04/11/2024 5:56 AM - Electronically signed by Wilfred Couch MD
[2024-04-11 06:53] LABS: BASOPHILS % (AUTO) 0.3 % (0.2-1.0); EOSINOPHILS % (AUTO) 0.1 % (0.9-2.9); HEMATOCRIT 37.6 % (42.0-54.0); HEMOGLOBIN 12.6 g/dL (13.5-18.0); LYMPHOCYTES # (AUTO) 0.8 X10^3/uL (1.3-2.9); LYMPHOCYTES % (AUTO) 8.7 % (21.0-51.0); MEAN CORPUSCULAR HEMOGLOBIN 26.3 pg (27.0-34.0); MEAN CORPUSCULAR HGB CONC 33.5 g/dL (33.0-35.0); MEAN CORPUSCULAR VOLUME 78.5 fL (80.0-100.0); MEAN PLATELET VOLUME 8.2 fL (7.4-11.0); MONOCYTES # (AUTO) 0.5 x10^3/uL (0.3-0.8); MONOCYTES % (AUTO) 5.7 % (0.0-13.0); NEUTROPHILS # (AUTO) 7.7 x10^3/uL (2.2-4.8); NEUTROPHILS % (AUTO) 85.2 % (42.0-75.0); PLATELET COUNT 233 X10^3/uL (150.0-450.0); RED BLOOD COUNT 4.79 X10^6/uL (4.7-6.0); RED CELL DISTRIBUTION WIDTH 15.2 % (11.6-16.5)
[2024-04-11] MEDS ORDERED: ZESTRIL TAB 20 MG ONE (07:20)
[2024-04-11 07:21] LABS: ALANINE AMINOTRANSFERASE 24 Units/L (12-78); ALBUMIN 3.4 g/dL (3.4-5.0); ALKALINE PHOSPHATASE 77 Units/L (46-116); ASPARTATE AMINO TRANSFERASE 24 Units/L (15-37); BLOOD UREA NITROGEN 20 mg/dL (7-18); CALCIUM 8.7 mg/dL (8.5-10.1); CARBON DIOXIDE 26.6 mmol/L (21-32); CHLORIDE 104 mmol/L (98-107); COR NA(FOR HYPERGLY) 141 mmol/L (136-145); GLUCOSE 183 mg/dL (65-99); POTASSIUM 4.2 mmol/L (3.5-5.1); SODIUM 139 mmol/L (136-145); TOTAL PROTEIN 6.5 g/dL (6.4-8.2); eGFR NON BLACK RACES > 60 (>60)
[2024-04-11 08:43] VITALS: BP 154/71; RESP 22; TEMP 97.6
[2024-04-11 09:19] VITALS: PULSE 73; O2SAT 97
== END 2024-04-11 12:35 | disposition home or self-care (01) ==
LOC: MED/SURG
PROVIDERS: ADMIT Internal Medicine; ATTEND Internal Medicine
DX: J44.1 Chronic obstructive pulmonary disease with (acute) exacerbation; R06.02 Shortness of breath; I10 Essential (primary) hypertension; Z03.818 Encounter for observation for suspected exposure to other biological agents ruled out; E78.5 Hyperlipidemia, unspecified; K21.9 Gastro-esophageal reflux disease without esophagitis; J20.8 Acute bronchitis due to other specified organisms; J44.0 Chronic obstructive pulmonary disease with (acute) lower respiratory infection; E11.65 Type 2 diabetes mellitus with hyperglycemia; J45.998 Other asthma